=== PATIENT | male | born 1990 | race Two or more races ===

== ENCOUNTER → 2025-01-20 | Outpatient (CLI) | payer BC ==
[2025-01-20 09:02] LABS: Urine Bacteria None Seen /hpf (None Seen)
[2025-01-20 09:06] LABS: Basophils # (auto) 0 10 ^3/uL (0-0.2); Basophils % (auto) 0.4 % (0.0-2.0); Eosinophils # (auto) 0.1 10 ^3/uL (0-0.8); Eosinophils % (auto) 1.9 % (0.0-7.0); Hematocrit 47.8 % (41.0-53.0); Hemoglobin 17.1 g/dL (13.5-17.5); Lymphocytes % (auto) 38.1 % (10.0-50.0); Mean Corpuscular Hemoglobin 30.5 pg (28.0-32.0); Mean Corpuscular Hgb Conc. 35.8 g/dL (32.0-36.0); Mean Corpuscular Volume 85.2 fL (80.0-100.0); Monocytes # (auto) 0.6 10 ^3/uL (0-1.3); Monocytes % (auto) 7.1 % (0.0-12.0); Neutrophils # (auto) 4.1 10 ^3/uL (1.6-8.6); Neutrophils % (auto) 52.5 % (37.0-80.0); Nucleated Red Blood Cells % 0.2 %; Platelet Count (auto) 301 10^3/uL (140-450); Red Blood Cells 5.61 10^6/uL (4.5-5.90); Red Cell Distribution Width 12.9 % (11.8-14.3); White Blood Cell 7.9 10^3/uL (4.4-10.8)
[2025-01-20 09:15] LABS: Urine Blood Negative /uL (Negative); Urine Clarity Clear (Clear); Urine Color Light-Yellow (Yellow); Urine Protein, UAD Negative (Negative); Urine Specific Gravity 1.012 (1.001-1.035); Urine Squamous Epithelial Cell None Seen /hpf (<5); Urine Urobilinogen Normal (Negative); Urine WBC 1 /HPF (0-3)
[2025-01-20 09:40] LABS: Erythrocyte Sedimentation Rate 2 mm/hr (0-20)
[2025-01-20 09:48] LABS: Alkaline Phosphatase 63 U/L (46-116); Anion Gap 10 (5-15); Aspartate Aminotransferase 35 U/L (13-40); BUN/Creatinine Ratio 7.1 (10.0-20.0); Calcium 9.9 mg/dL (8.7-10.4); Carbon Dioxide 27 mmol/L (20-31); Chloride 104 mmol/L (98-107); Potassium 4.2 mmol/L (3.5-5.1); Sodium 141 mmol/L (136-145); Total Protein 7.8 g/dL (5.7-8.2)
[2025-01-20 09:49] LABS: Bilirubin, Total 0.7 mg/dL (0.2-1.0)
[2025-01-20 10:05] LABS: Alanine Aminotransferase 74 U/L (7-40); Albumin 4.8 g/dL (3.2-4.8); Blood Urea Nitrogen 8 mg/dL (9-23); Cholesterol 251 mg/dL (< 200); Glucose 116 mg/dL (74-106); HDL Cholesterol 39 mg/dL (40-59); Triglycerides 328 mg/dL (< 150)
[2025-01-20 10:23] LABS: LDL Cholesterol 180 mg/dL (< 100)
== END | disposition home or self-care (01) ==
LOC: LAB 08:24
PROVIDERS: ATTEND Internal Medicine
DX: R53.83 Other fatigue (principal); Z00.00 Encounter for general adult medical examination without abnormal findings
CPT/HCPCS: 36415; 80053; 80061; 81001; 84439; 84443; 85025; 85652

== ENCOUNTER 2025-04-12 07:41 | Outpatient (CLI) | payer BC ==
[2025-04-12 08:35] LABS: Alanine Aminotransferase 34 U/L (7-40); Aspartate Aminotransferase 22 U/L (<34); Triglycerides 135 mg/dL (< 150)
[2025-04-12 08:36] LABS: Cholesterol 201 mg/dL (< 200); HDL Cholesterol 30 mg/dL (40-59); LDL Cholesterol 163 mg/dL (< 100)
[2025-04-13 06:07] LABS: Hepatitis B Core Total Antibod Negative (Negative)
[2025-04-13 11:28] LABS: Hepatitis A Ab IgM Negative; Hepatitis A Total Antibody Positive (Negative); Hepatitis B Core IgM Negative (Negative); Hepatitis B Surface Antibody Positive (Negative); Hepatitis B Surface Antigen Negative (Negative); Hepatitis C Antibody Negative (Negative)
[2025-04-13 15:07] LABS: Anti-Nuclear Antibody Direct Negative (Negative)
== END 2025-04-12 17:00 | disposition home or self-care (01) ==
LOC: LAB 07:41
PROVIDERS: ATTEND Internal Medicine
DX: E78.00 Pure hypercholesterolemia, unspecified (principal); R79.89 Other specified abnormal findings of blood chemistry
CPT/HCPCS: 36415; 80061; 83540; 84450; 84460; 86038; 86705; 86706; 86708; 86709; 86803; 87340